=== PATIENT | female | born 1965 ===

== ENCOUNTER 2016-09-24 14:44 | Emergency (ER) | payer BC ==
[2016-09-24 15:13] VITALS: BP 99/71
[2016-09-24] MEDS ORDERED: Ketorolac INJ* 60 MG/2 ML VIAL IM ONE (15:47)
--- NOTE | 2016-09-24 15:53 | UC ---
Lower Extremity/Ankle HPI - HPI Summary HPI Summary: 51 y/o female presents to the urgent care c/o RT foot pain after running a 5K this morning. Pt states she was resting after the 5K and when she was going to stand up, pain started. Pain w/ ambulation or at touch is 10/10, at rest is 0/ 10. Pain is not radiating. She feels mild numbness on RT #2 and #3 toe. Pt denies fever, SOB, chest pain, N/V/D. No other complains - History of Current Complaint Chief Complaint: UCLowerExtremity Stated Complaint: RIGHT FOOT INJURY Time Seen by Provider: 09/24/16 15:30 Hx Obtained From: Patient Hx Last Menstrual Period: post menopausal ?: No Onset/Duration: Sudden Onset, Lasting Hours, Still Present Severity Initially: Severe Severity Currently: Severe - when walking Pain Intensity: 10 Pain Scale Used: 0-10 Numeric Aggravating Factor(s): Ambulation Alleviating Factor(s): Rest Able to Bear Weight: No - Risk Factors Gout Risk Factors: Negative, Age Over 40 DVT Risk Factors: Negative Septic Arthritis Risk Factor: Negative - Allergies/Home Medications Allergies/Adverse Reactions: Allergies Allergy/AdvReac Type Severity Reaction Status Date / Time No Known Allergies Allergy Verified 09/24/16 15:01 Home Medications: Home Medications Atorvastatin* [Lipitor 10 MG*] 10 mg PO DAILY 09/24/16 [History Confirmed ] Calcium Polycarbophil [Fiber Tabs] 625 mg PO BEDTIME 09/24/16 [History Confirmed 09/24/16] Eszopiclone [Lunesta] 1 mg PO BEDTIME 09/24/16 [History Confirmed 09/24/16] PMH/Surg Hx/FS Hx/Imm Hx Previously Healthy: Yes Endocrine History: Dyslipidemia - Surgical History Surgical History: Yes Surgery Procedure, Year, and Place: RHINOPLASTY 06/27. BREAST REDUCTION 2002. CARPAL TUNNEL REPIR 2003 - Family History Family History: Dyslipedimia - Social History Occupation: Employed Full-time Lives: With Family Alcohol Use: Occasionally Substance Use Type: None Smoking Status (MU): Never Smoked Tobacco Review of Systems Constitutional: Negative Skin: Negative Eyes: Negative ENT: Negative Respiratory: Negative Cardiovascular: Negative Gastrointestinal: Negative Genitourinary: Negative Motor: Negative Neurovascular: Negative Musculoskeletal: Other: - RT foot pain s/p running 5K Neurological: Negative Psychological: Negative All Other Systems Reviewed And Are Negative: Yes Physical Exam Triage Information Reviewed: Yes Appearance: Well-Appearing, No Pain Distress, Well-Nourished, Thin Vital Signs: Initial Vital Signs Temp 100.1 F 09/24/16 15:03 Pulse 99 09/24/16 15:03 Resp 20 09/24/16 15:03 BP 99/71 09/24/16 15:03 Pulse Ox 98 09/24/16 15:03 Vital Signs Reviewed: Yes Eye Exam: Normal Eyes: Positive: Conjunctiva Clear - PERRLA, EOMI, fundi grossly normal ENT Exam: Normal ENT: Positive: Normal ENT inspection, Hearing grossly normal, Pharynx normal, TMs normal Dental Exam: Normal Neck exam: Normal Neck: Positive: Supple, Nontender, No Lymphadenopathy Respiratory Exam: Normal Respiratory: Positive: Chest non-tender, Lungs clear, Normal breath sounds Cardiovascular Exam: Normal Cardiovascular: Positive: RRR, No Murmur, Pulses Normal, Brisk Capillary Refill Abdominal Exam: Normal Abdomen Description: Positive: Nontender, No Organomegaly, Soft. Negative: CVA Tenderness (R), CVA Tenderness (L) Bowel Sounds: Positive: Present Musculoskeletal: Positive: Strength Intact, ROM Intact, Other: - RT dorsal foot and sole tender to palpation, mild swelling observed. Pain elicited on dorsiflexion of the RT foot. FROM of RT foot. Positive pulses, capillary refill. Decrease sensation at the RT#2 and RT# 3 toe. Neurological Exam: Normal Psychological Exam: Normal Skin Exam: Normal Lower Extremity Course/Dx - Course Course Of Treatment: 51 y/o female presents to the urgent care c/o RT foot pain after running a 5K this morning. Pt states she was resting after the 5K and when she was going to stand up, pain started. Pain w/ ambulation or at touch is 10/10, at rest is 0/10. Pain is not radiating. She feels mild numbness on RT #2 and #3 toe. Pt denies fever, SOB, chest pain, N/V/D. Hx obtained. Toradol IM inj ordered to alleviate pain ans swelling, Inj placed by Nurse. Pt tolerated well IM inj. X-ray of RT foot ordered. PE abnormal findings:RT dorsal foot and sole tender to palpation, mild swelling observed. Pain elicited on dorsiflexion of the RT foot. FROM of RT foot. Positive pulses, capillary refill. Decrease sensation at the RT#2 and RT# 3 toe. RT Foot x-ray ordered to r/o stress fracture. Impression: no fracture, degenerative changes for RT 1st Toe. Post-up shoe ordered and crutches. Pt Rx Ibuprofen 800mg PO after meals to alleviate symptoms. Advised RICE. F/y with PCP if symptoms do not improve in 1 week. Pt understood and agreed. - Differential Dx/Diagnosis Differential Diagnosis/HQI/PQRI: Contusion, Fracture (Closed), Gout, Sprain, Strain, Tendonitis, Other Provider Diagnoses: Right foot pain - Physician Notifications Discussed Patient Care With: Antonio Mcmahan - Dr Mcmahan agreed on Pt care and treatment Discharge - Discharge Plan Condition: Stable Disposition: HOME Prescriptions: Ibuprofen TAB* [Motrin TAB* 800 MG] 800 mg PO Q6H #30 tab Patient Education Materials: Crutch Instructions (ED), Foot Fracture in Adults (ED) Referrals: Mark Trotter MD [Medical Doctor] - If Needed Vikram Aguilar MD [Primary Care Provider] - 1 Week Additional Instructions: Please take medications as instructed after meals to alleviate pain and swelling. Elevate your foot, place ice. Do not put weight on your foot for 1 week or until symptoms improve . If you do not improve or if symptoms worsen follow up with your PCP or Orthopedic DR Trotter or return to the urgent care for further evaluation and treatment.
--- NOTE | 2016-09-24 16:59 | RAD ---
Indication: Foot pain. 3 views of the right foot demonstrates no fracture. Degenerative changes of the first metatarsal phalangeal joint is noted. No other bone or joint abnormality is noted. IMPRESSION: No fracture of the right foot is noted. Degenerative changes of the first metatarsal phalangeal joint.
== END 2016-09-24 17:08 | disposition home or self-care (01) ==
LOC: UCCORT 14:44
DX: M79.671 Pain in right foot (principal); E78.5 Hyperlipidemia, unspecified
CPT/HCPCS: 96372; 99203; G0463; J1885